=== PATIENT | female | born 1965 | race Caucasian/White ===

== ENCOUNTER 2021-11-24 13:35 | Day surgery (SDC) | payer BC ==
[2021-11-24] MEDS ORDERED: Xylocaine 1% Vial 30 ML PF IJ ONE (13:36)
[2021-11-24] MEDS ORDERED: Decadron 4 MG INJ IV ONE (13:36)
[2021-11-24] MEDS ORDERED: Lactated Ringers 1,000 ML IV ONE (15:22)
[2021-11-24] MEDS ORDERED: DIPRIVAN 200 MG/20 ML IV ONE (15:38)
--- NOTE | 2021-11-24 16:46 | XRAY ---
Indication: Right piriformis injection. Intraoperative fluoroscopy provided for 45 seconds. Single digital spot image obtained prone submitted for interpretation demonstrates posterior needle tip projecting over the right piriformis muscle. Small amount of contrast injected for needle tip placement. Correlate with intraoperative findings/report.
--- NOTE | 2021-11-24 16:49 | XRAY ---
45 seconds fluoroscopy time in surgery for injection of the right piriformis muscle.
== END 2021-11-24 16:10 | disposition home or self-care (01) ==
LOC: SDC-PAIN 13:35
PROVIDERS: ATTEND Psychiatry & Neurology Pain Medicine
DX: M79.18 Myalgia, other site (principal); Z79.899 Other long term (current) drug therapy
CPT/HCPCS: 20552; 72170; 77002; 81025; J1100; J2001; J2704; Q9966

== ENCOUNTER 2022-11-14 11:27 | Day surgery (SDC) | payer BC, OTHER ==
[2022-11-14] MEDS ORDERED: Lactated Ringers 1,000 ML IV ONE (11:40)
[2022-11-14] MEDS ORDERED: Lactated Ringers 1,000 ML IV SCH (12:00)
[2022-11-14 12:04] VITALS: O2SAT 100
[2022-11-14 12:06] VITALS: RESP 18
[2022-11-14] MEDS ORDERED: Versed 2 MG/2 ML Injection ONE (12:23)
[2022-11-14] MEDS ORDERED: Xylocaine-Mpf 2% 5 Ml Vial ONE (12:23)
[2022-11-14] MEDS ORDERED: DIPRIVAN 200 MG/20 ML IV ONE ×2 (12:23→12:44)
[2022-11-14 13:53] VITALS: BP 123/82; PULSE 54; TEMP 97.1
--- NOTE | 2022-11-15 15:43 | OP ---
SURGERY DATE: 11/14/2022 SURGERY TIME: 1230 PREOPERATIVE DIAGNOSIS: 1. SCREENING. POSTOPERATIVE DIAGNOSIS: 1. NORMAL COLON WITH MILD TO MODERATE TORTUOSITY. 2. BENIGN SMALL ANAL TAG. PROCEDURE: 1. Colonoscopy to cecum. SURGEON: Dr. Tamar Portillo. ANESTHESIA: MAC. ESTIMATED BLOOD LOSS: None. COMPLICATIONS: None. SPECIMENS: None. PLAN: Screening colonoscopy in 10 years. PROCEDURE DETAILS: This is a 57 year-old female who presents for screening colonoscopy. Risks, benefits, alternatives, H&P, and consent have been reviewed with her and confirmed. She was then brought back to the endoscopy suite. Anesthesia was induced. A complete time-out was performed. First, a rectal inspection and rectal exam were done. She has a very small benign-appearing anal tag. Otherwise, her rectal exam was normal. We then inserted the scope. Gently advanced this to the level of the cecum. She did have some moderate tortuosity throughout her colon, most significant in the left colon. We were able to navigate to the cecum nicely. The ileocecal valve and appendiceal orifice were visualized and these were normal and then the scope was carefully withdrawn taking a good circumferential view. The patient had a good prep. She did have multiple angulations along with the tortuous colon, but her colon itself had very healthy mucosa and appeared to be normal. There were no masses, no polyps, no diverticulosis noted. The scope was then able to be fully withdrawn. The patient tolerated the procedure very well. Since her colonoscopy is negative, I have recommended for a screening colonoscopy in 10 years. I did also discuss with her family that should she have any new symptoms, bleeding, abdominal pain, rectal pain, change in bowel function, or anything concerning with her gastrointestinal tract, she should present for evaluation to her PCP or myself and consider earlier colonoscopy for diagnostic purposes. She understands and then she will be following up with me in 10 years.
== END 2022-11-14 13:50 | disposition home or self-care (01) ==
LOC: SDC 11:27
PROVIDERS: ATTEND Surgery
DX: Z12.11 Encounter for screening for malignant neoplasm of colon (principal); K64.4 Residual hemorrhoidal skin tags
CPT/HCPCS: J2250; J2704